=== PATIENT | female | born 1945 | race Caucasian/White ===

== ENCOUNTER 2018-02-27 13:11 | Emergency (ER) | payer BC, OTHER ==
--- NOTE | 2018-02-27 17:01 | ED ---
Lower Extremity - HPI Summary HPI Summary: This is scribe Sky Maldonado documenting for attending Christopher Mcpherson MD. A 72 y/o female accompanied by her and daughter presents to ED c/o left leg swelling and pain reaching 10/10 in severity. According to the patient, her left leg hurts and has been getting bigger and bigger. She noted that she was working in the kitchen when her leg began to expand and become bigger. She denies any injury. She stated that she cannot do stairs well anymore and has been putting all her weight basically on the left leg because she has lumbago and cannot use her right leg as much. Patient has orthopedic appointment on Thursday. PMHx of AMD and left knee replacement. FHx of varicose veins (mother). Current medications include Ared Vitamin (new). Ared Vitamin is for people with moderate to advanced AMD. I, Dr. Christopher Mcpherson, personally performed the services described in this documentation as scribed in my presence and it is both accurate and complete. - History of Current Complaint Chief Complaint: EDExtremityLower Stated Complaint: LT LEG PAIN Time Seen by Provider: 02/27/18 16:23 Hx Obtained From: Patient Mechanism Of Injury: Other - NONE. Onset of Pain: Hours Onset/Duration: Hours Severity Initially: Moderate Severity Currently: Moderate Pain Intensity: 4 Pain Scale Used: 0-10 Numeric Timing: Constant Location: Is Diffuse - Left leg. Associated Signs And Symptoms: Positive: Swelling, Redness, Other - POSITIVE: Left leg pain Aggravating Factor(s): Ambulation, Weight Bearing Alleviating Factor(s): Rest Able to Bear Weight: Yes - Allergies/Home Medications Allergies/Adverse Reactions: Allergies Allergy/AdvReac Type Severity Reaction Status Date / Time No Known Allergies Allergy Verified 02/27/18 13:26 PMH/Surg Hx/FS Hx/Imm Hx Musculoskeletal History: Reports: Hx Arthritis - LEFT KNEE AND RIGHT SHOULDER, Hx Bursitis - RIGHT SHOULDER, Hx Tendonitis - RIGHT SHOULDER Sensory History: Reports: Hx Contacts or Glasses - READING GLASSES Denies: Hx Hearing Aid Opthamlomology History: Reports: Hx Contacts or Glasses - READING GLASSES EENT History: Reports: Other - AMD Psychiatric History: Reports: Hx Anxiety - ON MEDICATION, Hx Depression - Surgical History Surgery Procedure, Year, and Place: 1971, 1973, 1974 [facility]. 1979 CSECTION, [facility] [place]. 2004 LEFT ARM SURGERY ORIF, [facility] [place] Hx Anesthesia Reactions: Yes - 1979 [place], [place] - Immunization History Immunizations Up to Date: Yes Infectious Disease History: No Infectious Disease History: Denies: Traveled Outside the [place] in Last 30 Days - Family History Known Family History: Positive: Other - Varicose veins - Social History Alcohol Use: None Substance Use Type: Reports: None Smoking Status (MU): Never Smoked Tobacco Review of Systems Negative: Fever Positive: Other - POSITIVE: Left leg pain. All Other Systems Reviewed And Are Negative: Yes Physical Exam - Summary Physical Exam Summary: Appearance: The patient is well-nourished in no acute distress and in no acute pain. Skin: The skin is warm and dry and skin color reflects adequate perfusion. HEENT: The head is normocephalic and atraumatic. The pupils are equal and reactive. The conjunctivae are clear and without drainage. Nares are patent and without drainage. Mouth reveals moist mucous membranes and the throat is without erythema and exudate. The external ears are intact. The ear canals are patent and without drainage. The tympanic membranes are intact. Neck: The neck is supple with full range of motion and non-tender. There are no carotid bruits. There is no neck vein distension. Respiratory: Chest is non-tender. Lungs are clear to auscultation and breath sounds are symmetrical and equal. Cardiovascular: Heart is regular rate and rhythm. There is no murmur or rub auscultated. There is no peripheral edema and pulses are symmetrical and equal. Abdomen: The abdomen is soft and non-tender. There are normal bowel sounds heard in all four quadrants and there is no organomegaly palpated. Musculoskeletal: There is no back tenderness noted. Extremities are non-tender with full range of motion. There is good capillary refill. Left proximal pre- tibital hematoma. Neurological: Patient is alert and oriented to person, place and time. The patient has symmetrical motor strength in all four extremities. Cranial nerves are grossly intact. Deep tendon reflexes are symmetrical and equal in all four extremities. Psychiatric: The patient has an appropriate affect and does not exhibit any anxiety or depression. Triage Information Reviewed: Yes Vital Signs On Initial Exam: Initial Vitals Temp Pulse Resp BP Pulse Ox 98.5 F 66 16 121/79 97 02/27/18 13:13 08/11/18 13:13 02/27/18 13:13 02/27/18 13:13 02/27/18 13:13 Vital Signs Reviewed: Yes Diagnostics - Vital Signs Vital Signs Temp Pulse Resp BP Pulse Ox 02/27/18 16:07 98.2 F 61 16 149/81 99 02/27/18 13:13 98.5 F 66 16 121/79 97 - Laboratory Lab Statement: Any lab studies that have been ordered have been reviewed, and results considered in the medical decision making process. Lower Extremity Course/Dx - Course Course Of Treatment: Ms. Tucker presents with a fairly sudden onset of a right pretibial hematoma. It is fairly tense and both painful and tender. She's not aware of any trauma. She doesn't take any blood thinners. At this point it looks to be tamponaded off and I think there is no much we can do but allowed to take its course. - Diagnoses Provider Diagnoses: Hematoma Discharge - Sign-Out/Discharge Documenting (check all that apply): Patient Departure - DISCHARGE - Discharge Plan Condition: Stable Disposition: HOME Prescriptions: traMADol TAB* [Ultram*] 50 mg PO Q6HR PRN #20 tab MDD 4 PRN Reason: Pain Patient Education Materials: Leg Pain (ED), Hematoma (ED) Referrals: Sherine Kunz MD [Primary Care Provider] - Bola Rockwell MD [Medical Doctor] - 3 Days Additional Instructions: FOLLOW UP WITH ORTHOPEDICS IN 2-3 DAYS. RETURN TO ED FOR ANY NEW OR WORSENING SYMPTOMS. - Billing Disposition and Condition Condition: STABLE Disposition: Home
[2018-02-27] MEDS ORDERED: traMADol TAB* 50 MG PO ONE (17:25)
[2018-02-27 17:47] VITALS: BP 156/79
== END 2018-02-27 17:45 | disposition home or self-care (01) ==
LOC: ED 13:11
DX: S80.11XA Contusion of right lower leg, initial encounter (principal); X58.XXXA Exposure to other specified factors, initial encounter; Y93.9 Activity, unspecified; Y92.9 Unspecified place or not applicable; F41.9 Anxiety disorder, unspecified; Z96.652 Presence of left artificial knee joint
CPT/HCPCS: 99282; A9270-GY

== ENCOUNTER 2022-01-14 10:50 | Observation (INO) ==
[~2022-01-14 10:50] MED LIST: Buffered Lidocaine 1% SYRIN 1 ml INTRADERM ONE; Famotidine IV 10 MG/ML 2 ml VIAL (20 mg) IV ONE; Lactated Ringers 1000 ml BAG 1,000 ML IV SCH; Scopolamine 1 mg/72hr PATCH TRANSDERM ONE
[2022-01-14] MEDS ORDERED: Dexamethasone IV 4 MG/ML VIAL 1 ml VIAL ONE ×2 (11:33→14:44)
[2022-01-14] MEDS ORDERED: Midazolam 2 mg/2 ml VIAL 1 mg/ml 2 ml VIAL (2 mg) ONE (11:33)
[2022-01-14] MEDS ORDERED: Dexmedetomidine 200 mcg/2 ml 2 ml VIAL (200 mcg) ONE (11:33)
[2022-01-14] MEDS ORDERED: Bupivacaine 0.25% w/EPI 10 ML SDV ONE (11:34)
[2022-01-14] MEDS ORDERED: Scopolamine 1 mg/72hr PATCH ONE (11:46)
[2022-01-14] MEDS ORDERED: Famotidine IV 10 MG/ML 2 ml VIAL (20 mg) ONE (11:47)
[2022-01-14] MEDS ORDERED: ceFAZolin 2 GM in NS PREMIX 2 GM/100 ML BAG IVPB ONE (11:47)
[2022-01-14] MEDS ORDERED: Ropivacaine 0.2% 2 MG/ML VIAL ONE (12:10)
[2022-01-14] MEDS ORDERED: Propofol 10 MG/ML 20 ML BTL ONE (12:14)
[2022-01-14] MEDS ORDERED: fentaNYL 100 mcg/2 ml 50 MCG/ML VIAL ONE (12:14)
[2022-01-14] MEDS ORDERED: Rocuronium 50 mg VIAL 10 mg/ml 5 ml VIAL (50 mg) ONE (12:15)
[2022-01-14] MEDS ORDERED: Lidocaine 2% PF 5 ML VIAL ONE (12:17)
[2022-01-14] MEDS ORDERED: Ondansetron 4 mg VIAL 2 MG/ML 2 ml VIAL ONE (14:44)
[2022-01-14] MEDS ORDERED: HYDROmorphone 0.5 MG/0.5 ML SYRINGE ONE (15:41)
[2022-01-14] MEDS ORDERED: Magnesium Hydroxide LIQ 30 ML UDC PO PRN (15:56)
[2022-01-14] MEDS ORDERED: Ondansetron 4 mg VIAL 2 MG/ML 2 ml VIAL IV PRN (15:56)
[2022-01-14] MEDS ORDERED: Lactulose 30 ml UDC PO PRN (15:56)
[2022-01-14] MEDS ORDERED: Morphine 2 MG/ML SYRINGE IV PRN (15:56)
[2022-01-14] MEDS ORDERED: Ondansetron ODT 4 mg TAB 4 MG TAB PO PRN (15:56)
[2022-01-14] MEDS ORDERED: oxyCODONE/Acetamin 5/325 mg TAB PO PRN (16:31)
[2022-01-14] MEDS: Lactated Ringers 1000 ml BAG 1,000 ML IV SCH (17:50)
[2022-01-14] MEDS: Magnesium Hydroxide LIQ 30 ML UDC PO SCH (20:38)
[2022-01-14] MEDS: ceFAZolin 1 GM ADVAN 1 GM in NS 0.9% 50 ML 50 ML IVPB SCH (20:47)
[2022-01-14] MEDS ORDERED: Benzocaine/Menthol LOZ PO PRN (23:34)
[2022-01-15] MEDS: Lactated Ringers 1000 ml BAG 1,000 ML IV SCH (02:48)
[2022-01-15 05:16] LABS: Hematocrit 34 % (35-47); Hemoglobin 11.4 g/dL (12.0-16.0); Mean Platelet Volume 9.1 fL (7.4-10.4); Platelet Count 206 10^3/uL (150-450)
[2022-01-15] MEDS: ceFAZolin 1 GM ADVAN 1 GM in NS 0.9% 50 ML 50 ML IVPB SCH ×2 (05:19→13:30)
[2022-01-15 06:34] LABS: CO2 Carbon Dioxide 18 mmol/L (22-32); Calcium 7.9 mg/dL (8.6-10.3); Chloride 97 mmol/L (101-111); Sodium 127 mmol/L (135-145)
[2022-01-15 06:38] LABS: Anion Gap 12 mmol/L (2-11)
[2022-01-15 06:40] LABS: Blood Urea Nitrogen 10 mg/dL (6-24); Glucose 120 mg/dL (70-100); eGFR CKD-EPI 99.8 (>60)
[2022-01-15] MEDS: Magnesium Hydroxide LIQ 30 ML UDC PO SCH (08:16)
[2022-01-15] MEDS ORDERED: Vitamin THERAPEUTIC TAB PO SCH (09:00)
[2022-01-15 09:51] LABS: Calcium 8.8 mg/dL (8.6-10.3); Potassium 4.4 mmol/L (3.5-5.0)
[2022-01-15 11:45] VITALS: BP 102/56
== END 2022-01-15 14:25 | disposition home or self-care (01) ==
LOC: OR 10:50 → SSU 10:50
PROVIDERS: ADMIT Orthopaedic Surgery Sports Medicine; ATTEND Orthopaedic Surgery Sports Medicine